=== PATIENT | female | born 2000 | race Caucasian/White ===

== ENCOUNTER 2020-12-17 12:36 | Emergency (ER) | payer BC ==
[2020-12-17 12:50] VITALS: BP 134/81; PULSE 97; TEMP 98.3; BMI 48.7
[2020-12-17] MEDS ORDERED: DEXAMETHASONE LIQUID 0.5 MG/5 ML PO ONE (12:56)
[2020-12-17] MEDS ORDERED: DEXAMETHASONE SOD PHOSPHATE 10 MG/1 ML VIAL ONE (13:13)
== END 2020-12-17 13:48 | disposition home or self-care (01) ==
LOC: JER 12:36
DX: J02.0 Streptococcal pharyngitis (principal); Z11.52 Encounter for screening for COVID-19
CPT/HCPCS: 87880; 99283-25; C9803; U0003; U0005

== ENCOUNTER 2021-08-15 12:23 | Emergency (ER) | payer OTHER, BC ==
[2021-08-15 13:23] VITALS: BP 111/75; PULSE 73; TEMP 98; BMI 53.5
[2021-08-15] MEDS ORDERED: FLUORESCEIN NA 1 EA STRIP OS ONE (13:52)
[2021-08-15] MEDS ORDERED: TETRACAINE 0.5% HCL 0.6ML DROPPER.BOTTLE OS ONE (13:52)
[2021-08-15] MEDS ORDERED: FLUORESCEIN NA 1 EA STRIP ONE (13:57)
[2021-08-15] MEDS ORDERED: TETRACAINE 0.5% OPHTH SOLN 2 ML BOTTLE ONE (13:57)
== END 2021-08-15 14:09 | disposition home or self-care (01) ==
LOC: JERFT 12:23
DX: H10.211 Acute toxic conjunctivitis, right eye (principal); T65.891A Toxic effect of other specified substances, accidental (unintentional), initial encounter; Z77.098 Contact with and (suspected) exposure to other hazardous, chiefly nonmedicinal, chemicals
CPT/HCPCS: 99283-25